=== PATIENT | female | born 1945 | race Caucasian/White ===

== ENCOUNTER → 2021-01-02 | Outpatient (CLI) | payer OTHER | LOC: HYPER 09:02 | PROVIDERS: ATTEND Emergency Medicine | DX: L59.8 Other specified disorders of the skin and subcutaneous tissue related to radiation (principal); L98.494 Non-pressure chronic ulcer of skin of other sites with necrosis of bone; C06.0 Malignant neoplasm of cheek mucosa; R29.898 Other symptoms and signs involving the musculoskeletal system; I48.91 Unspecified atrial fibrillation; F41.9 Anxiety disorder, unspecified; F32.9 Major depressive disorder, single episode, unspecified; Z87.891 Personal history of nicotine dependence; Y84.2 Radiological procedure and radiotherapy as the cause of abnormal reaction of the patient, or of later complication, without mention of misadventure at the time of the procedure ==

== ENCOUNTER → 2021-01-09 | Outpatient (CLI) | payer OTHER ==
--- NOTE | 2021-01-09 12:59 | EKG ---
[place] [address] [facility] [place] [address] ELECTROCARDIOGRAM REPORT Name: TONYA NAVARRO [id number] Admission: 01/09/21 Attend Phys: Amrit Emerson MD Discharge: Date of : 43 Report #: [id number] [facility] Test Date: 2021-01-09 Test Time: 11:04:09 Pat Name: TONYA NAVARRO Department: Room: Gender: F Envelope Folder: SBULOW : 1945 Requested By: Amrit Emerson Order Number: [id number] MD: Bernardo Naik Measurements Intervals Peak Rate: 91 P: NH: QRS: 47 QRSD: 88 T: -5 QT: 386 QTc: 475 Interpretive Statements Atrial fibrillation Low voltage, precordial leads RSR' in V1 or V2, right VCD or RVH Borderline T abnormalities, inferior leads No previous ECG available for comparison Electronically Signed On 01-09-2021 12:59:26 CDT by Bernardo Naik [email or web address] <ELECTRONICALLY SIGNED> By: Bernardo Naik MD, [facility] 01/09/21 1259 03 03 Bernardo Naik MD, FAC /EPI
== END ==
LOC: RAD 10:33
PROVIDERS: ATTEND Emergency Medicine
DX: L98.494 Non-pressure chronic ulcer of skin of other sites with necrosis of bone (principal); L59.8 Other specified disorders of the skin and subcutaneous tissue related to radiation; I48.91 Unspecified atrial fibrillation

== ENCOUNTER → 2021-01-11 | Outpatient (CLI) | payer OTHER | LOC: HYPER 07:43 | PROVIDERS: ATTEND Emergency Medicine | DX: L59.8 Other specified disorders of the skin and subcutaneous tissue related to radiation (principal); L98.494 Non-pressure chronic ulcer of skin of other sites with necrosis of bone; C06.0 Malignant neoplasm of cheek mucosa; R29.898 Other symptoms and signs involving the musculoskeletal system; M87.88 Other osteonecrosis, other site; I48.91 Unspecified atrial fibrillation; F41.9 Anxiety disorder, unspecified; F32.9 Major depressive disorder, single episode, unspecified; Z93.3 Colostomy status; Z87.891 Personal history of nicotine dependence; Y84.2 Radiological procedure and radiotherapy as the cause of abnormal reaction of the patient, or of later complication, without mention of misadventure at the time of the procedure ==

== ENCOUNTER → 2021-01-12 | Outpatient (CLI) | payer OTHER | LOC: HYPER 07:51 | PROVIDERS: ATTEND Emergency Medicine Emergency Medical Services | DX: L59.8 Other specified disorders of the skin and subcutaneous tissue related to radiation (principal); L98.494 Non-pressure chronic ulcer of skin of other sites with necrosis of bone; C06.0 Malignant neoplasm of cheek mucosa; I48.91 Unspecified atrial fibrillation; Z87.891 Personal history of nicotine dependence; Z79.899 Other long term (current) drug therapy; Y84.2 Radiological procedure and radiotherapy as the cause of abnormal reaction of the patient, or of later complication, without mention of misadventure at the time of the procedure ==

== ENCOUNTER → 2021-01-15 | Outpatient (CLI) | payer OTHER | LOC: HYPER 07:48 | PROVIDERS: ATTEND Emergency Medicine Emergency Medical Services | DX: L59.8 Other specified disorders of the skin and subcutaneous tissue related to radiation (principal); L98.494 Non-pressure chronic ulcer of skin of other sites with necrosis of bone; C06.0 Malignant neoplasm of cheek mucosa; I48.91 Unspecified atrial fibrillation; Z87.891 Personal history of nicotine dependence; Z79.899 Other long term (current) drug therapy; Y84.2 Radiological procedure and radiotherapy as the cause of abnormal reaction of the patient, or of later complication, without mention of misadventure at the time of the procedure ==

== ENCOUNTER → 2021-01-18 | Outpatient (CLI) | payer OTHER | LOC: HYPER 08:38 | PROVIDERS: ATTEND Emergency Medicine | DX: L59.8 Other specified disorders of the skin and subcutaneous tissue related to radiation (principal); L98.494 Non-pressure chronic ulcer of skin of other sites with necrosis of bone; C06.0 Malignant neoplasm of cheek mucosa; R29.898 Other symptoms and signs involving the musculoskeletal system; I48.91 Unspecified atrial fibrillation; F41.9 Anxiety disorder, unspecified; F32.9 Major depressive disorder, single episode, unspecified; Z87.891 Personal history of nicotine dependence; Z79.899 Other long term (current) drug therapy; Y84.2 Radiological procedure and radiotherapy as the cause of abnormal reaction of the patient, or of later complication, without mention of misadventure at the time of the procedure ==

== ENCOUNTER → 2021-01-19 | Outpatient (CLI) | payer OTHER | LOC: HYPER 08:15 | PROVIDERS: ATTEND Emergency Medicine Emergency Medical Services | DX: L59.8 Other specified disorders of the skin and subcutaneous tissue related to radiation (principal); L98.494 Non-pressure chronic ulcer of skin of other sites with necrosis of bone; C06.0 Malignant neoplasm of cheek mucosa; I48.91 Unspecified atrial fibrillation; Z87.891 Personal history of nicotine dependence; Z79.899 Other long term (current) drug therapy; Y84.2 Radiological procedure and radiotherapy as the cause of abnormal reaction of the patient, or of later complication, without mention of misadventure at the time of the procedure ==

== ENCOUNTER → 2021-01-25 | Outpatient (CLI) | payer OTHER | LOC: HYPER 08:51 | PROVIDERS: ATTEND Specialist | DX: L59.8 Other specified disorders of the skin and subcutaneous tissue related to radiation (principal); L98.494 Non-pressure chronic ulcer of skin of other sites with necrosis of bone; C06.0 Malignant neoplasm of cheek mucosa; I48.91 Unspecified atrial fibrillation; Z87.891 Personal history of nicotine dependence; Z79.899 Other long term (current) drug therapy; Y84.2 Radiological procedure and radiotherapy as the cause of abnormal reaction of the patient, or of later complication, without mention of misadventure at the time of the procedure ==

== ENCOUNTER → 2021-02-02 | Outpatient (CLI) | payer OTHER | LOC: HYPER 10:58 | PROVIDERS: ATTEND Emergency Medicine Emergency Medical Services | DX: L59.8 Other specified disorders of the skin and subcutaneous tissue related to radiation (principal); M87.88 Other osteonecrosis, other site; L98.494 Non-pressure chronic ulcer of skin of other sites with necrosis of bone; C06.0 Malignant neoplasm of cheek mucosa; I48.91 Unspecified atrial fibrillation; R29.898 Other symptoms and signs involving the musculoskeletal system; F41.9 Anxiety disorder, unspecified; F32.9 Major depressive disorder, single episode, unspecified; Z87.891 Personal history of nicotine dependence; Z79.899 Other long term (current) drug therapy; Z93.3 Colostomy status; Y84.2 Radiological procedure and radiotherapy as the cause of abnormal reaction of the patient, or of later complication, without mention of misadventure at the time of the procedure ==

== ENCOUNTER → 2021-02-05 | Outpatient (CLI) | payer OTHER | LOC: HYPER 09:10 | PROVIDERS: ATTEND Emergency Medicine Emergency Medical Services | DX: L59.8 Other specified disorders of the skin and subcutaneous tissue related to radiation (principal); M87.88 Other osteonecrosis, other site; L98.494 Non-pressure chronic ulcer of skin of other sites with necrosis of bone; C06.0 Malignant neoplasm of cheek mucosa; I48.91 Unspecified atrial fibrillation; R29.898 Other symptoms and signs involving the musculoskeletal system; F41.9 Anxiety disorder, unspecified; F32.9 Major depressive disorder, single episode, unspecified; Z87.891 Personal history of nicotine dependence; Z79.899 Other long term (current) drug therapy; Z93.3 Colostomy status; Y84.2 Radiological procedure and radiotherapy as the cause of abnormal reaction of the patient, or of later complication, without mention of misadventure at the time of the procedure ==

== ENCOUNTER → 2021-02-07 | Outpatient (CLI) | payer OTHER | LOC: HYPER 10:07 | PROVIDERS: ATTEND Emergency Medicine | DX: L59.8 Other specified disorders of the skin and subcutaneous tissue related to radiation (principal); M87.88 Other osteonecrosis, other site; L98.494 Non-pressure chronic ulcer of skin of other sites with necrosis of bone; C06.0 Malignant neoplasm of cheek mucosa; I48.91 Unspecified atrial fibrillation; R29.898 Other symptoms and signs involving the musculoskeletal system; F41.9 Anxiety disorder, unspecified; F32.9 Major depressive disorder, single episode, unspecified; Z87.891 Personal history of nicotine dependence; Z79.899 Other long term (current) drug therapy; Z93.3 Colostomy status; Y84.2 Radiological procedure and radiotherapy as the cause of abnormal reaction of the patient, or of later complication, without mention of misadventure at the time of the procedure ==

== ENCOUNTER → 2021-02-08 | Outpatient (CLI) | payer OTHER | LOC: HYPER 09:02 | PROVIDERS: ATTEND Emergency Medicine | DX: L59.8 Other specified disorders of the skin and subcutaneous tissue related to radiation (principal); L98.494 Non-pressure chronic ulcer of skin of other sites with necrosis of bone; M85.89 Other specified disorders of bone density and structure, multiple sites; C06.0 Malignant neoplasm of cheek mucosa; R29.898 Other symptoms and signs involving the musculoskeletal system; I48.91 Unspecified atrial fibrillation; Z93.3 Colostomy status; Z87.891 Personal history of nicotine dependence; Z85.818 Personal history of malignant neoplasm of other sites of lip, oral cavity, and pharynx ==

== ENCOUNTER → 2021-02-09 | Outpatient (CLI) | payer OTHER | LOC: HYPER 08:40 | PROVIDERS: ATTEND Emergency Medicine Emergency Medical Services | DX: L59.8 Other specified disorders of the skin and subcutaneous tissue related to radiation (principal); L98.494 Non-pressure chronic ulcer of skin of other sites with necrosis of bone; C06.0 Malignant neoplasm of cheek mucosa; I48.91 Unspecified atrial fibrillation; Z87.891 Personal history of nicotine dependence; Z79.899 Other long term (current) drug therapy; Y84.2 Radiological procedure and radiotherapy as the cause of abnormal reaction of the patient, or of later complication, without mention of misadventure at the time of the procedure ==

== ENCOUNTER → 2021-02-12 | Outpatient (CLI) | payer OTHER | LOC: HYPER 11:13 | PROVIDERS: ATTEND Emergency Medicine | DX: L59.8 Other specified disorders of the skin and subcutaneous tissue related to radiation (principal); L98.494 Non-pressure chronic ulcer of skin of other sites with necrosis of bone; M85.89 Other specified disorders of bone density and structure, multiple sites; C06.0 Malignant neoplasm of cheek mucosa; R29.898 Other symptoms and signs involving the musculoskeletal system; I48.91 Unspecified atrial fibrillation; F41.9 Anxiety disorder, unspecified; F32.9 Major depressive disorder, single episode, unspecified; Z87.891 Personal history of nicotine dependence; Y84.2 Radiological procedure and radiotherapy as the cause of abnormal reaction of the patient, or of later complication, without mention of misadventure at the time of the procedure ==

== ENCOUNTER → 2021-02-13 | Outpatient (CLI) | payer OTHER | LOC: HYPER 09:36 | PROVIDERS: ATTEND Specialist | DX: L59.8 Other specified disorders of the skin and subcutaneous tissue related to radiation (principal); L98.494 Non-pressure chronic ulcer of skin of other sites with necrosis of bone; C06.0 Malignant neoplasm of cheek mucosa; R29.898 Other symptoms and signs involving the musculoskeletal system; M27.8 Other specified diseases of jaws; I48.91 Unspecified atrial fibrillation; F41.9 Anxiety disorder, unspecified; F32.9 Major depressive disorder, single episode, unspecified; Z85.818 Personal history of malignant neoplasm of other sites of lip, oral cavity, and pharynx; Z87.891 Personal history of nicotine dependence; Z79.899 Other long term (current) drug therapy; Y84.2 Radiological procedure and radiotherapy as the cause of abnormal reaction of the patient, or of later complication, without mention of misadventure at the time of the procedure ==

== ENCOUNTER → 2021-02-14 | Outpatient (CLI) | payer OTHER | LOC: HYPER 08:16 | PROVIDERS: ATTEND Emergency Medicine | DX: L59.8 Other specified disorders of the skin and subcutaneous tissue related to radiation (principal); L98.494 Non-pressure chronic ulcer of skin of other sites with necrosis of bone; C06.0 Malignant neoplasm of cheek mucosa; M27.8 Other specified diseases of jaws; R29.898 Other symptoms and signs involving the musculoskeletal system; I48.91 Unspecified atrial fibrillation; F41.9 Anxiety disorder, unspecified; F32.9 Major depressive disorder, single episode, unspecified; Z93.3 Colostomy status; Z87.891 Personal history of nicotine dependence; Y84.2 Radiological procedure and radiotherapy as the cause of abnormal reaction of the patient, or of later complication, without mention of misadventure at the time of the procedure ==

== ENCOUNTER → 2021-02-19 | Outpatient (CLI) | payer OTHER | LOC: HYPER 09:20 | PROVIDERS: ATTEND Emergency Medicine Emergency Medical Services | DX: L59.8 Other specified disorders of the skin and subcutaneous tissue related to radiation (principal); L98.494 Non-pressure chronic ulcer of skin of other sites with necrosis of bone; C06.0 Malignant neoplasm of cheek mucosa; R29.898 Other symptoms and signs involving the musculoskeletal system; I48.91 Unspecified atrial fibrillation; F41.9 Anxiety disorder, unspecified; F32.9 Major depressive disorder, single episode, unspecified; Z85.818 Personal history of malignant neoplasm of other sites of lip, oral cavity, and pharynx; Z87.891 Personal history of nicotine dependence; Z79.899 Other long term (current) drug therapy; Y84.2 Radiological procedure and radiotherapy as the cause of abnormal reaction of the patient, or of later complication, without mention of misadventure at the time of the procedure ==

== ENCOUNTER → 2021-02-20 | Outpatient (CLI) | payer OTHER | LOC: HYPER 10:07 | PROVIDERS: ATTEND Specialist | DX: L59.8 Other specified disorders of the skin and subcutaneous tissue related to radiation (principal); L98.494 Non-pressure chronic ulcer of skin of other sites with necrosis of bone; C06.0 Malignant neoplasm of cheek mucosa; R29.898 Other symptoms and signs involving the musculoskeletal system; M27.8 Other specified diseases of jaws; I48.91 Unspecified atrial fibrillation; F41.9 Anxiety disorder, unspecified; F32.9 Major depressive disorder, single episode, unspecified; Z85.818 Personal history of malignant neoplasm of other sites of lip, oral cavity, and pharynx; Z87.891 Personal history of nicotine dependence; Y84.2 Radiological procedure and radiotherapy as the cause of abnormal reaction of the patient, or of later complication, without mention of misadventure at the time of the procedure ==

== ENCOUNTER → 2021-02-21 | Outpatient (CLI) | payer OTHER | LOC: HYPER 09:49 | PROVIDERS: ATTEND Emergency Medicine | DX: L59.8 Other specified disorders of the skin and subcutaneous tissue related to radiation (principal); L98.494 Non-pressure chronic ulcer of skin of other sites with necrosis of bone; C06.0 Malignant neoplasm of cheek mucosa; R29.898 Other symptoms and signs involving the musculoskeletal system; M27.8 Other specified diseases of jaws; I48.91 Unspecified atrial fibrillation; F41.9 Anxiety disorder, unspecified; F32.9 Major depressive disorder, single episode, unspecified; Z85.818 Personal history of malignant neoplasm of other sites of lip, oral cavity, and pharynx; Z87.891 Personal history of nicotine dependence; Y84.2 Radiological procedure and radiotherapy as the cause of abnormal reaction of the patient, or of later complication, without mention of misadventure at the time of the procedure ==

== ENCOUNTER → 2021-02-22 | Outpatient (CLI) | payer OTHER | LOC: HYPER 08:47 | PROVIDERS: ATTEND Emergency Medicine | DX: L59.8 Other specified disorders of the skin and subcutaneous tissue related to radiation (principal); L98.494 Non-pressure chronic ulcer of skin of other sites with necrosis of bone; C06.0 Malignant neoplasm of cheek mucosa; I48.91 Unspecified atrial fibrillation; Z87.891 Personal history of nicotine dependence; Z79.899 Other long term (current) drug therapy; Y84.2 Radiological procedure and radiotherapy as the cause of abnormal reaction of the patient, or of later complication, without mention of misadventure at the time of the procedure ==

== ENCOUNTER → 2021-02-23 | Outpatient (CLI) | payer OTHER | LOC: HYPER 09:00 | PROVIDERS: ATTEND Emergency Medicine | DX: L59.8 Other specified disorders of the skin and subcutaneous tissue related to radiation (principal); L98.494 Non-pressure chronic ulcer of skin of other sites with necrosis of bone; C06.0 Malignant neoplasm of cheek mucosa; R29.898 Other symptoms and signs involving the musculoskeletal system; M27.8 Other specified diseases of jaws; I48.91 Unspecified atrial fibrillation; F41.9 Anxiety disorder, unspecified; F32.9 Major depressive disorder, single episode, unspecified; Z85.818 Personal history of malignant neoplasm of other sites of lip, oral cavity, and pharynx; Z87.891 Personal history of nicotine dependence; Y84.2 Radiological procedure and radiotherapy as the cause of abnormal reaction of the patient, or of later complication, without mention of misadventure at the time of the procedure ==

== ENCOUNTER → 2021-02-26 | Outpatient (CLI) | payer OTHER | LOC: HYPER 08:22 | PROVIDERS: ATTEND Emergency Medicine Emergency Medical Services | DX: L59.8 Other specified disorders of the skin and subcutaneous tissue related to radiation (principal); L98.494 Non-pressure chronic ulcer of skin of other sites with necrosis of bone; D06.0 Carcinoma in situ of endocervix; R29.898 Other symptoms and signs involving the musculoskeletal system; I48.91 Unspecified atrial fibrillation; F41.9 Anxiety disorder, unspecified; F32.9 Major depressive disorder, single episode, unspecified; Z85.818 Personal history of malignant neoplasm of other sites of lip, oral cavity, and pharynx; Z79.899 Other long term (current) drug therapy; Z93.3 Colostomy status; Y84.2 Radiological procedure and radiotherapy as the cause of abnormal reaction of the patient, or of later complication, without mention of misadventure at the time of the procedure ==

== ENCOUNTER → 2021-02-27 | Outpatient (CLI) | payer OTHER | LOC: HYPER 08:25 | PROVIDERS: ATTEND Specialist | DX: L59.8 Other specified disorders of the skin and subcutaneous tissue related to radiation (principal); M87.88 Other osteonecrosis, other site; L98.494 Non-pressure chronic ulcer of skin of other sites with necrosis of bone; C06.0 Malignant neoplasm of cheek mucosa; R29.898 Other symptoms and signs involving the musculoskeletal system; M27.8 Other specified diseases of jaws; I48.91 Unspecified atrial fibrillation; F41.9 Anxiety disorder, unspecified; F32.9 Major depressive disorder, single episode, unspecified; Z85.818 Personal history of malignant neoplasm of other sites of lip, oral cavity, and pharynx; Z87.891 Personal history of nicotine dependence; Y84.2 Radiological procedure and radiotherapy as the cause of abnormal reaction of the patient, or of later complication, without mention of misadventure at the time of the procedure ==

== ENCOUNTER → 2021-03-01 | Outpatient (CLI) | payer OTHER | LOC: HYPER 11:02 | PROVIDERS: ATTEND Emergency Medicine | DX: L59.8 Other specified disorders of the skin and subcutaneous tissue related to radiation (principal); L98.494 Non-pressure chronic ulcer of skin of other sites with necrosis of bone; C06.0 Malignant neoplasm of cheek mucosa; R29.898 Other symptoms and signs involving the musculoskeletal system; I48.91 Unspecified atrial fibrillation; F41.9 Anxiety disorder, unspecified; F32.9 Major depressive disorder, single episode, unspecified; Z87.891 Personal history of nicotine dependence; Z79.899 Other long term (current) drug therapy; Z93.3 Colostomy status ==

== ENCOUNTER → 2021-03-02 | Outpatient (CLI) | payer OTHER | LOC: HYPER 09:16 | PROVIDERS: ATTEND Emergency Medicine Emergency Medical Services | DX: L59.8 Other specified disorders of the skin and subcutaneous tissue related to radiation (principal); L98.494 Non-pressure chronic ulcer of skin of other sites with necrosis of bone; C06.0 Malignant neoplasm of cheek mucosa; R29.898 Other symptoms and signs involving the musculoskeletal system; I48.91 Unspecified atrial fibrillation; F41.9 Anxiety disorder, unspecified; F32.9 Major depressive disorder, single episode, unspecified; Z87.891 Personal history of nicotine dependence; Z79.899 Other long term (current) drug therapy; Z93.3 Colostomy status; Y84.2 Radiological procedure and radiotherapy as the cause of abnormal reaction of the patient, or of later complication, without mention of misadventure at the time of the procedure ==

== ENCOUNTER → 2021-03-05 | Outpatient (CLI) | payer OTHER | LOC: HYPER 11:06 | PROVIDERS: ATTEND Emergency Medicine Emergency Medical Services | DX: L59.8 Other specified disorders of the skin and subcutaneous tissue related to radiation (principal); L98.494 Non-pressure chronic ulcer of skin of other sites with necrosis of bone; C06.0 Malignant neoplasm of cheek mucosa; I48.91 Unspecified atrial fibrillation; Z87.891 Personal history of nicotine dependence; Z79.899 Other long term (current) drug therapy; Y84.2 Radiological procedure and radiotherapy as the cause of abnormal reaction of the patient, or of later complication, without mention of misadventure at the time of the procedure ==

== ENCOUNTER → 2021-03-06 | Outpatient (CLI) | payer OTHER | LOC: HYPER 09:11 | PROVIDERS: ATTEND Specialist | DX: L59.8 Other specified disorders of the skin and subcutaneous tissue related to radiation (principal); L98.494 Non-pressure chronic ulcer of skin of other sites with necrosis of bone; M27.2 Inflammatory conditions of jaws; C06.0 Malignant neoplasm of cheek mucosa; I48.91 Unspecified atrial fibrillation; Z87.891 Personal history of nicotine dependence; Z79.899 Other long term (current) drug therapy; Y84.2 Radiological procedure and radiotherapy as the cause of abnormal reaction of the patient, or of later complication, without mention of misadventure at the time of the procedure ==

== ENCOUNTER → 2021-03-07 | Outpatient (CLI) | payer OTHER | LOC: HYPER 09:12 | PROVIDERS: ATTEND Emergency Medicine | DX: L59.8 Other specified disorders of the skin and subcutaneous tissue related to radiation (principal); L98.494 Non-pressure chronic ulcer of skin of other sites with necrosis of bone; C06.0 Malignant neoplasm of cheek mucosa; I48.91 Unspecified atrial fibrillation; Z87.891 Personal history of nicotine dependence; Z79.899 Other long term (current) drug therapy; Y84.2 Radiological procedure and radiotherapy as the cause of abnormal reaction of the patient, or of later complication, without mention of misadventure at the time of the procedure ==

== ENCOUNTER → 2021-03-08 | Outpatient (CLI) | payer OTHER | LOC: HYPER 10:11 | PROVIDERS: ATTEND Emergency Medicine | DX: L59.8 Other specified disorders of the skin and subcutaneous tissue related to radiation (principal); L98.494 Non-pressure chronic ulcer of skin of other sites with necrosis of bone; C06.0 Malignant neoplasm of cheek mucosa; I48.91 Unspecified atrial fibrillation; F41.9 Anxiety disorder, unspecified; F32.9 Major depressive disorder, single episode, unspecified; Z87.891 Personal history of nicotine dependence; R29.898 Other symptoms and signs involving the musculoskeletal system; Z79.899 Other long term (current) drug therapy; Y84.2 Radiological procedure and radiotherapy as the cause of abnormal reaction of the patient, or of later complication, without mention of misadventure at the time of the procedure ==

== ENCOUNTER → 2021-03-09 | Outpatient (CLI) | payer OTHER | LOC: HYPER 11:08 | PROVIDERS: ATTEND Emergency Medicine Emergency Medical Services | DX: L59.8 Other specified disorders of the skin and subcutaneous tissue related to radiation (principal); L98.494 Non-pressure chronic ulcer of skin of other sites with necrosis of bone; C06.0 Malignant neoplasm of cheek mucosa; R29.898 Other symptoms and signs involving the musculoskeletal system; I48.91 Unspecified atrial fibrillation; F41.9 Anxiety disorder, unspecified; F32.9 Major depressive disorder, single episode, unspecified; Z87.891 Personal history of nicotine dependence; Z79.899 Other long term (current) drug therapy; Z93.3 Colostomy status; Y84.2 Radiological procedure and radiotherapy as the cause of abnormal reaction of the patient, or of later complication, without mention of misadventure at the time of the procedure ==

== ENCOUNTER → 2021-03-12 | Outpatient (CLI) | payer OTHER | LOC: HYPER 09:20 | PROVIDERS: ATTEND Emergency Medicine Emergency Medical Services | DX: L59.8 Other specified disorders of the skin and subcutaneous tissue related to radiation (principal); L98.494 Non-pressure chronic ulcer of skin of other sites with necrosis of bone; C06.0 Malignant neoplasm of cheek mucosa; R29.898 Other symptoms and signs involving the musculoskeletal system; I48.91 Unspecified atrial fibrillation; F41.9 Anxiety disorder, unspecified; F32.9 Major depressive disorder, single episode, unspecified; Z87.891 Personal history of nicotine dependence; Z79.899 Other long term (current) drug therapy; Z93.3 Colostomy status; Y84.2 Radiological procedure and radiotherapy as the cause of abnormal reaction of the patient, or of later complication, without mention of misadventure at the time of the procedure ==

== ENCOUNTER → 2021-03-13 | Outpatient (CLI) | payer OTHER | LOC: HYPER 10:11 | PROVIDERS: ATTEND Emergency Medicine Emergency Medical Services | DX: L59.8 Other specified disorders of the skin and subcutaneous tissue related to radiation (principal); L98.494 Non-pressure chronic ulcer of skin of other sites with necrosis of bone; C06.0 Malignant neoplasm of cheek mucosa; R29.898 Other symptoms and signs involving the musculoskeletal system; I48.91 Unspecified atrial fibrillation; F41.9 Anxiety disorder, unspecified; F32.9 Major depressive disorder, single episode, unspecified; Z79.899 Other long term (current) drug therapy; Z87.891 Personal history of nicotine dependence; Y84.2 Radiological procedure and radiotherapy as the cause of abnormal reaction of the patient, or of later complication, without mention of misadventure at the time of the procedure ==

== ENCOUNTER → 2021-03-14 | Outpatient (CLI) | payer OTHER | LOC: HYPER 12:50 | PROVIDERS: ATTEND Emergency Medicine Emergency Medical Services | DX: L59.8 Other specified disorders of the skin and subcutaneous tissue related to radiation (principal); L98.494 Non-pressure chronic ulcer of skin of other sites with necrosis of bone; C06.0 Malignant neoplasm of cheek mucosa; R29.898 Other symptoms and signs involving the musculoskeletal system; I48.91 Unspecified atrial fibrillation; F41.9 Anxiety disorder, unspecified; F32.9 Major depressive disorder, single episode, unspecified; Z79.899 Other long term (current) drug therapy; Y84.2 Radiological procedure and radiotherapy as the cause of abnormal reaction of the patient, or of later complication, without mention of misadventure at the time of the procedure ==

== ENCOUNTER → 2021-03-15 | Outpatient (CLI) | payer OTHER | LOC: HYPER 08:34 | PROVIDERS: ATTEND Emergency Medicine Emergency Medical Services | DX: L59.8 Other specified disorders of the skin and subcutaneous tissue related to radiation (principal); L98.494 Non-pressure chronic ulcer of skin of other sites with necrosis of bone; C06.0 Malignant neoplasm of cheek mucosa; I48.91 Unspecified atrial fibrillation; F41.9 Anxiety disorder, unspecified; F32.9 Major depressive disorder, single episode, unspecified; Z87.891 Personal history of nicotine dependence; Z93.3 Colostomy status; Y84.2 Radiological procedure and radiotherapy as the cause of abnormal reaction of the patient, or of later complication, without mention of misadventure at the time of the procedure ==